=== PATIENT | male | born 1960 | race Hispanic/Latino ===

== ENCOUNTER 2017-08-17 15:11 | Outpatient (CLI) | payer MEDICARE ==
--- NOTE | 2017-08-18 17:44 | EKG ---
Test Reason : Blood Pressure : / mmHG Vent. Rate : 077 BPM Atrial Rate : 077 BPM P-R Int : 156 ms QRS Dur : 078 ms QT Int : 378 ms P-R-T Axes : 039 039 061 degrees QTc Int : 427 ms Normal sinus rhythm Possible Anterior infarct , age undetermined Abnormal ECG No previous ECGs available Confirmed by DR. Ketan FU ([id number]) on 08/18/2017 5:43:32 PM Referred By: STACEY Confirmed By:DR. Ketan FU
== END 2017-08-17 15:12 | disposition home or self-care (01) ==
LOC: LABBT 15:11
PROVIDERS: ATTEND Surgery
DX: Z01.812 Encounter for preprocedural laboratory examination (principal); N18.6 End stage renal disease
CPT/HCPCS: 93005; 93010

== ENCOUNTER 2017-09-02 05:46 | Day surgery (SDC) | payer MEDICARE ==
[2017-08-17 15:32] VITALS: BMI 29.2
[2017-09-02 06:31] LABS: #Eosinphils 0.4 thou/uL (0.0-0.7); #Lymphocytes 1.6 thou/uL (1.20-3.40); #Monocytes 0.8 thou/uL (0.11-0.59); #Neutrophils 3.5 thou/uL (1.40-6.50); %Basophils 0.6 % (0.0-1.0); %Eosinophils 6.5 % (0.0-10.0); %Lymphocytes 25.3 % (21.0-51.0); %Monocytes 12.4 % (0.0-10.0); %Neutrophils 55.3 % (42.0-75.0); Hemoglobin 10.9 g/dL (14.0-18.0); Mean Corpuscular HGB CONC 33.1 g/dL (32.0-36.0); Mean Corpuscular Hemoglobin 30.4 pg (27.0-31.0); Mean Platelet Volume 6.9 fL (7.4-10.4); Platelet Count 323 thou/uL (130-400); RBC Distribution Width 15.7 % (11.5-14.5); Red Blood Cell (RBC) Count 3.59 mill/uL (4.70-6.10); White Blood Cell (WBC) Count 6.3 thou/uL (4.8-10.8)
[2017-09-02] MEDS ORDERED: CEFAZOLIN/Water 2 GM/20 ML SYRINGE ONE (06:41)
[2017-09-02 06:43] LABS: Anion Gap 18 mmol/L (10-20); BUN (Urea Nitrogen) 28 mg/dL (8.4-25.7); Calc. Creatinine Clearance 14 mL/min (70-130); Calcium 9.7 mg/dL (7.8-10.44); Carbon Dioxide 30 mmol/L (22-29); Chloride 92 mmol/L (98-107); Estimated GFR-MDRD 9; Glucose 155 mg/dL (70-105); Potassium 5.2 mmol/L (3.5-5.1); Sodium 135 mmol/L (136-145)
[2017-09-02] MEDS ORDERED: Heparin 5,000 UNITS/ML VIAL ONE (06:43)
[2017-09-02] MEDS ORDERED: Bupivacaine/Epinephrine 0.25% 30 ML VIAL ONE (06:43)
[2017-09-02] MEDS ORDERED: Protamine Sulfate 50 MG/5 ML VIAL ONE (06:43)
[2017-09-02] MEDS ORDERED: Midazolam HCl 2 mg/2 ml Vial ONE (07:45)
[2017-09-02] MEDS ORDERED: Meperidine HCl/PF 25 MG/ML VIAL ONE (07:45)
[2017-09-02] MEDS ORDERED: Fentanyl 250 MCG/5 ML VIAL ONE (07:46)
[2017-09-02] MEDS ORDERED: Heparin 10,000 UNITS/ 10 ML VIAL ONE (10:28)
--- NOTE | 2017-09-02 11:54 | PDOC.OP ---
Operative Note - Operative Note Operative Note: PROCEDURE: Left Yasir AV fistula SURGEON: Serenity Grant M.D. DATE OF PROCEDURE: 09/02/17 PREOPERATIVE DIAGNOSIS: Renal failure POSTOPERATIVE DIAGNOSIS: Renal failure HISTORY: Patient with end-stage renal failure undergoing dialysis via a cuffed tunneled hemodialysis catheter. He requires fistula placement for permanent access. His veins appeared slightly better on the right but since he is right- handed we are going to attempt a fistula on the left first. He has opted against regional block. PROCEDURE IN DETAIL: After informed consent was obtained and appropriate preoperative antibiotics administered, the patient was taken to the operating room and placed in the supine position and general anesthesia by laryngeal mask airway was administered. The arm was prepped and draped in a standard sterile fashion and local anesthesia was infused and an incision made between the palpable cephalic vein and radial artery. Dissection was carried out to the cephalic vein, which appeared to be of adequate quality and caliber to support a fistula. This was dissected free circumferentially, ligated, and divided distally, and spatulated with Doran scissors. This was serially interrogated with cardiac dilators and easily accepted up to a 4 mm cardiac dilator. This was flushed with heparinized saline and clamped with a bulldog clamp. The radial artery was then dissected free and found to be of adequate quality and caliber to support a fistula. Heparin was administered systemically and allowed to circulate for 3 minutes following which the radial artery was clamped proximally and distally. An anterior arteriotomy was created with an 11 blade scalpel and extended with Doran scissors. An end-to-side anastomosis created with a running 6-0 Prolene suture with excellent technical result. Prior to tying down the anastomosis, the inflow was released to flush the anastomosis. Flow was established first through the fistula and then through the distal radial artery. Hemostasis at the site was confirmed, and an excellent thrill was felt in the cephalic vein outflow and an excellent bruit was heard with Doppler as well up to the proximal forearm. Hemostasis at the operative site was again confirmed. The incision was closed with a running 3-0 subcutaneous and running 4-0 subcuticular Monocryl sutures. Dermabond dressings were placed and the patient was taken to the recovery room in good condition. Estimated blood loss was minimal. There were no complications. There were no specimens.
== END 2017-09-02 10:55 | disposition home or self-care (01) ==
LOC: SDC 05:46
PROVIDERS: ATTEND Surgery
PROC: 031C0ZF Bypass Left Radial Artery to Lower Arm Vein, Open Approach (ICD-10-PCS; principal; 2017-09-02)
DX: N18.6 End stage renal disease (principal); Z99.2 Dependence on renal dialysis; Z91.041 Radiographic dye allergy status
CPT/HCPCS: 80048; 85025; J1644; J2175; J2250; J2720; J3010

== ENCOUNTER 2017-09-30 05:41 | Day surgery (SDC) | payer MEDICARE ==
[2017-09-29 13:07] VITALS: BMI 26.5
[2017-09-30] MEDS ORDERED: CEFAZOLIN/Water 2 GM/20 ML SYRINGE ONE (06:10)
[2017-09-30 06:47] LABS: #Eosinphils 0.3 thou/uL (0.0-0.7); #Lymphocytes 1.3 thou/uL (1.20-3.40); #Monocytes 0.6 thou/uL (0.11-0.59); #Neutrophils 2.1 thou/uL (1.40-6.50); %Basophils 0.8 % (0.0-1.0); %Eosinophils 6.6 % (0.0-10.0); %Lymphocytes 29.4 % (21.0-51.0); %Monocytes 14.8 % (0.0-10.0); %Neutrophils 48.4 % (42.0-75.0); Hemoglobin 12.5 g/dL (14.0-18.0); Mean Corpuscular HGB CONC 34.6 g/dL (32.0-36.0); Mean Corpuscular Hemoglobin 32.9 pg (27.0-31.0); Mean Corpuscular Volume 95.2 fl (80.0-94.0); Mean Platelet Volume 6.9 fL (7.4-10.4); Platelet Count 311 thou/uL (130-400); RBC Distribution Width 16.2 % (11.5-14.5); Red Blood Cell (RBC) Count 3.81 mill/uL (4.70-6.10); White Blood Cell (WBC) Count 4.3 thou/uL (4.8-10.8)
[2017-09-30] MEDS ORDERED: Heparin 5,000 UNITS/ML VIAL ONE (06:53)
[2017-09-30] MEDS ORDERED: Ioversol 68 % 50 ML VIAL ONE ×2 (06:53)
[2017-09-30] MEDS ORDERED: Bupivacaine/Epinephrine 0.25% 30 ML VIAL ONE (06:53)
[2017-09-30] MEDS ORDERED: Protamine Sulfate 50 MG/5 ML VIAL ONE (06:53)
[2017-09-30 06:54] LABS: Anion Gap 20 mmol/L (10-20); BUN (Urea Nitrogen) 23 mg/dL (8.4-25.7); Calc. Creatinine Clearance 11 mL/min (70-130); Calcium 9.8 mg/dL (7.8-10.44); Carbon Dioxide 29 mmol/L (22-29); Chloride 95 mmol/L (98-107); Estimated GFR-MDRD 8; Glucose 177 mg/dL (70-105); Potassium 5.1 mmol/L (3.5-5.1); Sodium 139 mmol/L (136-145)
[2017-09-30] MEDS ORDERED: Fentanyl 100 MCG/2 ML VIAL ONE (07:41)
[2017-09-30] MEDS ORDERED: Morphine 4 MG/ML VIAL ONE (09:33)
--- NOTE | 2017-09-30 09:33 | PDOC.OP ---
Operative Note - Operative Note Operative Note: PROCEDURE: Ligation of collaterals left Yasir fistula DATE OF PROCEDURE: 09/30/2017 SURGEON: Serenity Grant M.D. PREOPERATIVE DIAGNOSES: Multiple collaterals left Yasir fistula POSTOPERATIVE DIAGNOSIS: Multiple collaterals left Yasir fistula HISTORY: Mr. Adam Martins has a patent left Yasir AV fistula which appears to have good flow. However there are several large collaterals leading to the dorsal vein complex on the arm which appeared to be diminishing flow through the main outflow area recommendation was made to ligate these collaterals. PROCEDURE IN DETAIL: After informed consent was obtained the patient was taken to the operating room where he was placed in supine position and general anesthesia by laryngeal mask airway was administered. He was prepped and draped in a standard sterile fashion. Local anesthesia was infused the skin and subcutaneous tissues overlying four large collaterals which were identified by ultrasound. Skin incisions were made and dissection carried down to the collaterals which were ligated. Flow through the main cephalic vein appeared to be improved after ligation of collaterals. The entire fistula was examined and appeared to be patent with a widely open anastomosis by ultrasound. The skin incisions were closed with 4-0 Monocryl and Dermabond dressings were applied. The patient was extubated and taken to the recovery room in good condition. Estimated blood loss was minimal. There were, locations. There were no specimens.
[2017-09-30] MEDS ORDERED: Non-Formulary Medication 1 EACH PO PRN (09:46)
[2017-09-30] MEDS ORDERED: Ondansetron HCl/PF 4 MG/2 ML Vial IVP PRN (09:46)
[2017-09-30] MEDS ORDERED: Morphine 4 MG/ML Carpuject SLOW IVP PRN (09:46)
[2017-09-30] MEDS ORDERED: Promethazine HCl 25 MG/ML VIAL IM/IV PRN (09:46)
[2017-09-30] MEDS ORDERED: Heparin 10,000 UNITS/ 10 ML VIAL ONE (10:48)
[2017-09-30] MEDS ORDERED: ePHEDrine/0.9% NaCl/PF SYRINGE 50 mg/10 ml ONE (17:07)
[2017-09-30] MEDS ORDERED: Lidocaine 1% PF 5 ML VIAL ONE (17:07)
[2017-09-30] MEDS ORDERED: PROPOFOL 200 MG/20 ML VIAL ONE (17:07)
[2017-09-30] MEDS ORDERED: PHENYLEPHRINE-NS 100 MCG/ML 10 ML SYRINGE ONE (17:07)
[2017-09-30] MEDS ORDERED: Dexamethasone 20 MG/5 ML VIAL ONE (17:07)
== END 2017-09-30 10:45 | disposition home or self-care (01) ==
LOC: SDC 05:41
PROVIDERS: ATTEND Surgery
PROC: 05LF0ZZ Occlusion of Left Cephalic Vein, Open Approach (ICD-10-PCS; principal; 2017-09-30)
DX: T82.898A Other specified complication of vascular prosthetic devices, implants and grafts, initial encounter (principal); I12.0 Hypertensive chronic kidney disease with stage 5 chronic kidney disease or end stage renal disease; E11.22 Type 2 diabetes mellitus with diabetic chronic kidney disease; N18.6 End stage renal disease; E78.5 Hyperlipidemia, unspecified; Z99.2 Dependence on renal dialysis; Z79.4 Long term (current) use of insulin; Z79.899 Other long term (current) drug therapy; Z91.041 Radiographic dye allergy status
CPT/HCPCS: 36416; 80048; 85025; J1100; J1644; J2001; J2270; J2704; J2720; J3010; Q9967